=== PATIENT | female | born 1955 | race Caucasian/White ===

== ENCOUNTER → 2016-08-04 | Outpatient (CLI) | payer BC ==
[~2016-08-04] MED LIST: HYZAAR PO; PAXIL PO; ZOCOR PO
--- NOTE | ~2016-08-04 | MY11 ---
[facility] A Service of [facility] RADIOLOGY TEXT RESULTS PATIENT: MUSHTAQ BAEZ LOCATION: [facility] : 55 UNIT #: [id number] AGE: [address]: Preeti Zamorano MD SEX: F ORDER DR: [id number] [address] [address] [id number] O MR#: [id number] Acc #: [id number] NAME: MUSHTAQ BAEZ : 1955 SEX: F STUDY DATE/TIME: 08/04/2016 9:19 UNIT: [facility] ROOM: STUDY DESCRIPTION: MY Mammogram Screening Dig Pola Attending Physician: Preeti Zamorano M.D. Referring Physician: Preeti Zamorano M.D. Ordering Physician: Preeti Zamorano M.D. Primary Care Physician: Preeti Zamorano M.D. MEDICAL IMAGING REPORT This report is preliminary unless electronic signature is present. EXAM Digital screening mammogram 08/04/2016 [facility] HISTORY 61-year-old woman no risk elevation. Prior left breast biopsy. Annual screen. COMPARISON MAMMOGRAMS: 04/10/05, 08/13/06, 07/11/08. FINDINGS Digital imaging of each breast was completed utilizing screening protocol. Review includes FDA-approved CAD device. Breast parenchyma is moderately dense and somewhat heterogeneous with fibronodular opacities in each breast. Mild dominance in the left breast is stable. I see no suspicious mass characteristics. There are no interval occurring microcalcifications. A subtle architectural distortion in the outer hemisphere of the left breast middle third is the area of previous biopsy with a skin marker placed on our study date 09/10/2008. I see no suspicious architectural distortion. IMPRESSION Benign mammogram. Annual screening recommended. Patients over the age of 40 are entered into a reminder system with target due date for the next mammogram. A result letter will also be sent to the patient. BIRADS: 2 - benign findings Dictated by... [facility] A Service [facility] RADIOLOGY TEXT RESULTS PATIENT: MUSHTAQ BAEZ LOCATION: [facility] : 55 UNIT #: [id number] AGE: [address]: Preeti Zamorano MD SEX: F ORDER DR: Jhonatan Yepez M.D. THIS IS AN ELECTRONICALLY VERIFIED REPORT Jhonatan Yepez M.D. at 08/04/2016 2:38 PM EDIE/elizabeth TD: 08/04/2016 11:37 JOB #: [id number] MEDICAL IMAGING REPORT Page 1 of 1
--- NOTE | ~2016-08-04 | US6 ---
[facility] A Service of [facility] RADIOLOGY TEXT RESULTS PATIENT: MUSHTAQ BAEZ LOCATION: [facility] : 55 UNIT #: [id number] AGE: [address]: Preeti Zamorano MD SEX: F ORDER DR: [id number] [address] [address] [id number] O MR#: [id number] Acc #: [id number] NAME: MUSHTAQ BAEZ : 1955 SEX: F STUDY DATE/TIME: 08/04/2016 9:14 UNIT: [facility] ROOM: STUDY DESCRIPTION: US Abdominal Limited Attending Physician: Preeti Zamorano M.D. Referring Physician: Preeti Zamorano M.D. Ordering Physician: Preeti Zamorano M.D. Primary Care Physician: Preeti Zamorano M.D. MEDICAL IMAGING REPORT This report is preliminary unless electronic signature is present. EXAM Right upper quadrant ultrasound 08/04/2016 HISTORY Palpable abdominal fullness, palpable liver on physical examination 1 week ago. FINDINGS The liver demonstrates an increase in echotexture with attenuation of the ultrasound beam characteristic of fatty infiltration. No cystic or solid mass lesions were seen within the liver. The liver measured 18.2 cm in greatest diameter. The intra- and extrahepatic bile ducts are not dilated. The gallbladder was normal with no evidence of cholelithiasis, wall thickening, or pericholecystic fluid. The common duct measures 3 mm. The pancreas and right kidney are normal. IMPRESSION Fatty infiltration of the liver. Otherwise, negative right upper quadrant ultrasound. Dictated by... Ravinder Rivera M.D. THIS IS AN ELECTRONICALLY VERIFIED REPORT Ravinder Rivera M.D. at 08/05/2016 8:29 AM TIA/jena TD: 08/04/2016 13:54 JOB #: [id number] MEDICAL IMAGING REPORT [facility] A Service [facility] RADIOLOGY TEXT RESULTS PATIENT: MUSHTAQ BAEZ LOCATION: [facility] : 55 UNIT #: [id number] AGE: [address]: Preeti Zamorano MD SEX: F ORDER DR: Page 1 of 1
== END | disposition home or self-care (01) ==
LOC: SMAM 07-24 11:00
DX: Z12.31 Encounter for screening mammogram for malignant neoplasm of breast (principal); R19.8 Other specified symptoms and signs involving the digestive system and abdomen; K76.0 Fatty (change of) liver, not elsewhere classified; Z98.890 Other specified postprocedural states
CPT/HCPCS: 76705; G0202